=== PATIENT | male | born 1965 | race Two or more races ===

== ENCOUNTER 2021-02-28 13:38 | Emergency (ER) | payer BC ==
[~2021-02-28] VITALS: Ht 177.8 cm; Wt 82.7 kg
[2021-02-28 13:39] VITALS: BP 145/70
[2021-02-28] MEDS ORDERED: MILK500C PO (13:48)
[2021-02-28] MEDS ORDERED: FOLI1TAB11 PO (13:48)
[2021-02-28] MEDS ORDERED: FLOM0.4C39 PO (13:48)
[2021-02-28] MEDS ORDERED: HYZA50TA2 PO (13:48)
[2021-02-28] MEDS ORDERED: TRAZ1TAB10 PO (13:48)
[2021-02-28] MEDS ORDERED: KETOROLAC 30 MG/ML 1ML VIAL IM ONE (14:10)
[2021-02-28] MEDS ORDERED: CYCL5TAB PO (14:13)
[2021-02-28] MEDS ORDERED: ACET-683 PO (14:13)
[2021-04-17] MEDS ORDERED: EQL50TAB2 PO (14:41)
[2021-04-17] MEDS ORDERED: VITA100T28 PO (14:41)
== END 2021-02-28 14:50 | disposition home or self-care (01) ==
LOC: M ED 13:38
DX: M54.32 Sciatica, left side (principal); I10 Essential (primary) hypertension; N42.9 Disorder of prostate, unspecified; F10.11 Alcohol abuse, in remission; Z86.73 Personal history of transient ischemic attack (TIA), and cerebral infarction without residual deficits; Z87.891 Personal history of nicotine dependence; Z79.899 Other long term (current) drug therapy
CPT/HCPCS: 96372; 99283; J1885

== ENCOUNTER → 2021-04-01 | Outpatient (REF) | payer BC ==
[~2021-04-01] MED LIST: ACET-683 PO; CYCL5TAB PO; FLOM0.4C39 PO; FOLI1TAB11 PO; HYZA50TA2 PO; MILK500C PO; TRAZ1TAB10 PO
[2021-04-01 19:35] LABS: BACTERIA, URINE AUTO 1+ (NEGATIVE); RBC, URINE AUTO 4 /HPF (0-3); SQUAMOUS EPITHELIAL CELL UR AU 0 /HPF (0-6); WBC, URINE AUTO 1 /HPF (0-3)
== END ==
LOC: M LAB REF 16:08
PROVIDERS: ATTEND Internal Medicine
DX: R31.9 Hematuria, unspecified (principal)

== ENCOUNTER → 2021-04-22 | Outpatient (CLI) | payer BC ==
[~2021-04-22] MED LIST changes: +EQL50TAB2 PO; +LIDOCAINE 1% MDV 20ML VIAL As Ordered ONE; +VITA100T28 PO
[2021-04-22 10:59] VITALS: BP 111/55
== END ==
LOC: M IRPRO 08:18
PROVIDERS: ATTEND Internal Medicine
DX: K70.30 Alcoholic cirrhosis of liver without ascites (principal); E83.10 Disorder of iron metabolism, unspecified

== ENCOUNTER → 2021-09-24 | Outpatient (REF) | payer BC ==
[~2021-09-24] MED LIST changes: -LIDOCAINE 1% MDV 20ML VIAL As Ordered ONE
[2021-09-24 13:34] LABS: INR 1.36; PROTHROMBIN TIME 17.2 SECONDS (12.7-14.5)
== END ==
LOC: M LAB REF 12:49
PROVIDERS: ATTEND Internal Medicine
DX: K70.30 Alcoholic cirrhosis of liver without ascites (principal)

== ENCOUNTER → 2021-10-08 | Outpatient (CLI) | payer BC | LOC: M RAD 09:51 | PROVIDERS: ATTEND Internal Medicine | DX: K74.60 Unspecified cirrhosis of liver (principal) ==

== ENCOUNTER → 2021-11-30 | Outpatient (REF) ==
[~2021-11-30] MED LIST changes: -HYZA50TA2 PO; +LOSA-532 PO
[2021-12-02 06:08] LABS: RUBEOLA IgG ANTIBODY 63.8 AU/mL (Immune >16.4)
== END ==
LOC: M LAB 14:19
PROVIDERS: ATTEND Nurse Practitioner Adult Health
DX: Z01.89 Encounter for other specified special examinations (principal)

== ENCOUNTER → 2022-01-18 | Outpatient (CLI) | payer BC ==
[~2022-01-18] MED LIST changes: +ALBU8.5H INH; +CIPR500S PO; +CIPR750T2 PO; +COZA50TA PO; +PANT40TA29 PO; +PROP10TA56 PO; +[UNRECOGNIZED DRUG - CODE] PO
[2022-01-18 10:24] LABS: HEMATOCRIT 28.8 % (42.0-52.0); HEMOGLOBIN 9.2 g/dl (13.5-17.5)
== END ==
LOC: M LAB 09:31
PROVIDERS: ATTEND Family Medicine
DX: D50.9 Iron deficiency anemia, unspecified (principal)

== ENCOUNTER → 2022-01-20 | Outpatient (REF) | payer BC ==
[2022-01-21 11:52] LABS: INR 1.22; PROTHROMBIN TIME 15.7 SECONDS (12.5-14.5)
== END ==
LOC: M LAB REF 11:22
PROVIDERS: ATTEND Internal Medicine
DX: K70.30 Alcoholic cirrhosis of liver without ascites (principal)

== ENCOUNTER → 2022-02-16 | Outpatient (CLI) | payer BC ==
[~2022-02-16] MED LIST changes: +BUDE10.22; +FURO20TA2; +SPIR-10; +THIA100TA PO
[2022-02-16 19:03] LABS: BASO # 0.1 10^3/uL (0.0-0.2); BASO % 0.8 % (0.0-1.0); EOS # 0.3 10^3/uL (0.0-0.5); EOS % 4.7 % (0.0-3.0); HEMATOCRIT 36.5 % (42.0-52.0); HEMOGLOBIN 11.7 g/dl (13.5-17.5); LYMPH # 1.9 10^3/uL (1.5-5.0); LYMPH % 31.3 % (24.0-44.0); MEAN CORPUSCULAR HEMOGLOBIN 32.1 pg (27.0-33.0); MEAN CORPUSCULAR HGB CONC 32.1 g/dl (32.0-36.5); MEAN CORPUSCULAR VOLUME 100.3 fl (80.0-96.0); MONO # 0.6 10^3/uL (0.0-0.8); MONO % 9.9 % (2.0-8.0); NEUTROPHILS # 3.2 10^3/uL (1.5-8.5); NEUTROPHILS % 53.1 % (36.0-66.0); PLATELET COUNT, AUTOMATED 170 10^3/uL (150-450); RED BLOOD COUNT 3.64 10^6/uL (4.30-6.10)
[2022-02-16 19:23] LABS: ALBUMIN 3.2 G/DL (3.2-5.2); ALKALINE PHOSPHATASE 154 U/L (46-116); ALT/SGPT 60 U/L (7.0-40); AST/SGOT 87 U/L (<34); BILIRUBIN,TOTAL 1.7 MG/DL (0.3-1.2); BLOOD UREA NITROGEN 16 MG/DL (9-23); CALCIUM LEVEL 9.3 MG/DL (8.5-10.1); CARBON DIOXIDE LEVEL 26 MMOL/L (20-31); CHLORIDE LEVEL 105 MMOL/L (98-107); CREATININE FOR GFR 1.14 MG/DL (0.70-1.30); GLOMERULAR FILTRATION RATE > 60.0 (>56); GLUCOSE, FASTING 82 MG/DL (60-100); POTASSIUM SERUM 4.1 MMOL/L (3.5-5.1); SODIUM LEVEL 138 MMOL/L (136-145); TOTAL PROTEIN 8.8 G/DL (5.7-8.2)
[2022-02-16 19:24] LABS: THYROID STIMULATING HORMONE 1.015 uIU/ML (0.55-4.78)
[2022-02-16 19:25] LABS: FERRITIN 203.3 NG/ML (10.5-307.3); FREE T4 1.06 NG/DL (0.89-1.76)
[2022-02-16 19:42] LABS: HEPATITIS B SURFACE ANTIGEN NEGATIVE (NEGATIVE)
[2022-02-16 20:04] LABS: HEPATITIS B CORE ANTIBODY IGM NEGATIVE (NEGATIVE)
== END ==
LOC: M LAB 17:51
PROVIDERS: ATTEND Physician Assistant
DX: R53.1 Weakness (principal); I10 Essential (primary) hypertension

== ENCOUNTER 2022-02-17 11:50 | Emergency (ER) | payer BC ==
[~2022-02-17] VITALS: Ht 177.8 cm; Wt 78.6 kg
[~2022-02-17 11:50] MED LIST changes: -BUDE10.22; -FURO20TA2; -SPIR-10; -THIA100TA PO
[2022-02-17] MEDS ORDERED: SPIR-10 (12:30)
[2022-02-17] MEDS ORDERED: FURO20TA2 (12:30)
[2022-02-17] MEDS ORDERED: BUDE10.22 (12:30)
[2022-02-17] MEDS ORDERED: ISOVUE-370 76% 100ML VIAL As Ordered ONE (16:51)
[2022-02-17 17:50] LABS: BASO # 0.1 10^3/uL (0.0-0.2); EOS # 0.3 10^3/uL (0.0-0.5); EOS % 5.4 % (0.0-3.0); HEMATOCRIT 34.8 % (42.0-52.0); HEMOGLOBIN 11.5 g/dl (13.5-17.5); LYMPH # 1.6 10^3/uL (1.5-5.0); LYMPH % 26.6 % (24.0-44.0); MEAN CORPUSCULAR HEMOGLOBIN 32.4 pg (27.0-33.0); MONO # 0.7 10^3/uL (0.0-0.8); NEUTROPHILS # 3.3 10^3/uL (1.5-8.5); NEUTROPHILS % 54.7 % (36.0-66.0); PLATELET COUNT, AUTOMATED 144 10^3/uL (150-450); RED BLOOD COUNT 3.55 10^6/uL (4.30-6.10); WHITE BLOOD COUNT 6.1 10^3/uL (4.0-10.0)
[2022-02-17 18:01] LABS: INR 1.4; PROTHROMBIN TIME 17.4 SECONDS (12.5-14.5)
[2022-02-17 18:32] LABS: CK-MB VALUE MASS < 1.0 NG/ML (<3.6)
[2022-02-17 18:34] LABS: BLOOD UREA NITROGEN 16 MG/DL (9-23); CALCIUM LEVEL 8.8 MG/DL (8.5-10.1); CARBON DIOXIDE LEVEL 25 MMOL/L (20-31); CHLORIDE LEVEL 106 MMOL/L (98-107); CPK CREATINE PHOSPHOKINASE 205 U/L (46-171); CREATININE FOR GFR 1.26 MG/DL (0.70-1.30); GLOMERULAR FILTRATION RATE > 60.0 (>56); GLUCOSE, FASTING 78 MG/DL (60-100); MB/CK RELATIVE INDEX 0.48 (< OR =4); SODIUM LEVEL 138 MMOL/L (136-145)
[2022-02-17] MEDS ORDERED: ASPIRIN 325 MG TAB PO ONE (21:00)
[2022-02-17] MEDS ORDERED: THIAMINE 100 MG TAB PO ONE (21:00)
[2022-02-17] MEDS ORDERED: THIA100TA PO (21:09)
[2022-02-17 21:19] VITALS: BP 166/78
== END 2022-02-17 21:21 | disposition home or self-care (01) ==
LOC: M ED 11:50
DX: R47.9 Unspecified speech disturbances (principal); S22.41XA Multiple fractures of ribs, right side, initial encounter for closed fracture; I10 Essential (primary) hypertension; Z86.73 Personal history of transient ischemic attack (TIA), and cerebral infarction without residual deficits; K74.60 Unspecified cirrhosis of liver; F10.11 Alcohol abuse, in remission; Z87.891 Personal history of nicotine dependence; Z79.899 Other long term (current) drug therapy

== ENCOUNTER → 2022-02-22 | Outpatient (REF) | payer BC ==
[~2022-02-22] MED LIST changes: +BUDE10.22; +FURO20TA2; +SPIR-10; +THIA100TA PO
[2022-02-23 12:38] LABS: BACTERIA, URINE SMALL AMOUNT; SQUAMOUS EPITHELIAL CELL URINE SMALL AMOUNT /hpf (SMALL AMT)
[2022-02-23 12:39] LABS: AMORPHOUS SEDIMENT, URINE SMALL AMOUNT (NEGATIVE); HYALINE CAST, URINE 0-1 /lpf (0-1); MUCUS, URINE LARGE AMOUNT (NEGATIVE)
[2022-02-23 14:29] LABS: INR 1.3; PROTHROMBIN TIME 16.4 SECONDS (12.5-14.5)
== END ==
LOC: M LAB REF 11:46
PROVIDERS: ATTEND Internal Medicine
DX: R31.9 Hematuria, unspecified (principal); G93.40 Encephalopathy, unspecified; K70.30 Alcoholic cirrhosis of liver without ascites

== ENCOUNTER → 2022-03-09 | Outpatient (REF) | payer BC | LOC: M LAB REF 12:26 | PROVIDERS: ATTEND Internal Medicine | DX: K70.30 Alcoholic cirrhosis of liver without ascites (principal); G93.40 Encephalopathy, unspecified ==

== ENCOUNTER → 2022-03-26 | Outpatient (CLI) | payer BC | LOC: M WUC 08:53 | PROVIDERS: ATTEND Student in an Organized Health Care Education/Training Program | DX: R06.02 Shortness of breath (principal) ==

== ENCOUNTER → 2022-06-07 | Outpatient (REF) | payer BC ==
[2022-06-07 17:56] LABS: INR 1.17; PROTHROMBIN TIME 15.1 SECONDS (12.5-14.5)
== END ==
LOC: M LAB REF 16:09
PROVIDERS: ATTEND Internal Medicine
DX: G93.40 Encephalopathy, unspecified (principal); K70.31 Alcoholic cirrhosis of liver with ascites

== ENCOUNTER → 2022-06-10 | Outpatient (CLI) | payer BC | LOC: M RAD 08:01 | PROVIDERS: ATTEND Internal Medicine Gastroenterology | DX: K74.60 Unspecified cirrhosis of liver (principal); K80.10 Calculus of gallbladder with chronic cholecystitis without obstruction; R18.8 Other ascites; I85.01 Esophageal varices with bleeding; F10.10 Alcohol abuse, uncomplicated; C22.0 Liver cell carcinoma; E83.19 Other disorders of iron metabolism ==

== ENCOUNTER → 2022-09-08 | Outpatient (REF) | payer BC ==
[~2022-09-08] MED LIST changes: -COZA50TA PO; +LOSA-528 PO
[2022-09-08 18:36] LABS: INR 1.06
== END ==
LOC: M LAB REF 16:34
PROVIDERS: ATTEND Internal Medicine
DX: K70.31 Alcoholic cirrhosis of liver with ascites (principal)

== ENCOUNTER → 2023-03-10 | Outpatient (CLI) | payer BC | LOC: M RAD 07:58 | PROVIDERS: ATTEND Internal Medicine Gastroenterology | DX: K74.60 Unspecified cirrhosis of liver (principal); K80.20 Calculus of gallbladder without cholecystitis without obstruction; I85.01 Esophageal varices with bleeding; E83.19 Other disorders of iron metabolism; R18.8 Other ascites; Z12.11 Encounter for screening for malignant neoplasm of colon ==

== ENCOUNTER 2023-04-18 09:22 | Emergency (ER) | payer BC ==
[~2023-04-18] VITALS: Ht 177.8 cm; Wt 84.1 kg
[2023-04-18] MEDS: MORPHINE 4 MG/ML 1ML VIAL IV PRN (10:59)
[2023-04-18] MEDS: METOCLOPRAMIDE INJ 10MG/2ML VIAL IV ONE (10:59)
[2023-04-18] MEDS: NS 1,000 ML IV SCH (10:59)
[2023-04-18 11:22] LABS: BASO % 0.4 % (0.0-1.0); EOS % 0.4 % (0.0-3.0); HEMATOCRIT 43.1 % (42.0-52.0); HEMOGLOBIN 14.9 g/dl (13.5-17.5); LYMPH # 0.8 10^3/uL (1.5-5.0); LYMPH % 11.9 % (24.0-44.0); MEAN CORPUSCULAR HEMOGLOBIN 34.4 pg (27.0-33.0); MEAN CORPUSCULAR HGB CONC 34.6 g/dl (32.0-36.5); MEAN CORPUSCULAR VOLUME 99.5 fl (80.0-96.0); MONO # 0.4 10^3/uL (0.0-0.8); MONO % 5.4 % (2.0-8.0); NEUTROPHILS # 5.5 10^3/uL (1.5-8.5); NEUTROPHILS % 81.5 % (36.0-66.0); PLATELET COUNT, AUTOMATED 152 10^3/uL (150-450); RED BLOOD COUNT 4.33 10^6/uL (4.30-6.10); WHITE BLOOD COUNT 6.7 10^3/uL (4.0-10.0)
[2023-04-18 11:50] LABS: LIPASE 42 U/L (12-53)
[2023-04-18 11:51] LABS: AMYLASE 124 U/L (30-118)
[2023-04-18 11:52] LABS: ALBUMIN 3.7 G/DL (3.2-5.2); ALKALINE PHOSPHATASE 167 U/L (46-116); ALT/SGPT 179 U/L (7.0-40); AST/SGOT 227 U/L (<34); BILIRUBIN,DIRECT 0.6 MG/DL (<0.4); BILIRUBIN,TOTAL 1.4 MG/DL (0.3-1.2); BLOOD UREA NITROGEN 13 MG/DL (9-23); CALCIUM LEVEL 8.5 MG/DL (8.5-10.1); CARBON DIOXIDE LEVEL 27 MMOL/L (20-31); CHLORIDE LEVEL 103 MMOL/L (98-107); CREATININE FOR GFR 0.94 MG/DL (0.70-1.30); GLOMERULAR FILTRATION RATE > 60.0 (>56); GLUCOSE, FASTING 114 MG/DL (60-100); POTASSIUM SERUM 4.1 MMOL/L (3.5-5.1); SODIUM LEVEL 136 MMOL/L (136-145); TOTAL PROTEIN 8.1 G/DL (5.7-8.2)
[2023-04-18 12:26] LABS: RSV AMPLIFICATION NEGATIVE (NEGATIVE)
[2023-04-18] MEDS ORDERED: ISOVUE-370 76% 100ML VIAL As Ordered ONE (12:38)
[2023-04-18] MEDS ORDERED: SUCR1SS PO (15:02)
[2023-04-18] MEDS ORDERED: OMEP40CA4 PO (15:03)
[2023-04-18 15:42] VITALS: BP 141/66; TEMP 98.7; O2SAT 99
== END 2023-04-18 16:09 | disposition home or self-care (01) ==
LOC: M ED 09:22
DX: K29.70 Gastritis, unspecified, without bleeding (principal); K20.90 Esophagitis, unspecified without bleeding; K80.50 Calculus of bile duct without cholangitis or cholecystitis without obstruction; I10 Essential (primary) hypertension; J44.9 Chronic obstructive pulmonary disease, unspecified; Z87.891 Personal history of nicotine dependence; R00.1 Bradycardia, unspecified; Z79.51 Long term (current) use of inhaled steroids; Z79.899 Other long term (current) drug therapy
CPT/HCPCS: 74177; 76705; 80048; 80076; 81001; 82150; 83690; 83930; 85025; 87631; 93005; 96361; 96374; 96375; 99284; J2765; Q9967

== ENCOUNTER → 2023-09-15 | Outpatient (REF) | payer BC ==
[~2023-09-15] MED LIST changes: +OMEP40CA4 PO; +SUCR1SS PO
[2023-09-15 12:33] LABS: INR 1.13; PROTHROMBIN TIME 14.2 SECONDS (12.5-14.5)
== END ==
LOC: M LAB REF 12:00
PROVIDERS: ATTEND Internal Medicine
DX: K70.30 Alcoholic cirrhosis of liver without ascites (principal); Z79.899 Other long term (current) drug therapy

== ENCOUNTER → 2023-09-22 | Outpatient (CLI) | payer BC | LOC: M RAD 09:33 | PROVIDERS: ATTEND Internal Medicine Gastroenterology | DX: K74.60 Unspecified cirrhosis of liver (principal); I85.01 Esophageal varices with bleeding; C22.0 Liver cell carcinoma; E83.19 Other disorders of iron metabolism; R18.8 Other ascites ==

== ENCOUNTER → 2024-03-19 | Outpatient (REF) | payer BC ==
[~2024-03-19] MED LIST changes: -CYCL5TAB PO; +CYCL5TAB4 PO
[2024-03-19 12:53] LABS: INR 1.05
[2024-03-19 13:09] LABS: PERCENT SATURATION 46.8 % (19.7-50.0)
[2024-03-19 13:12] LABS: FERRITIN 346.2 NG/ML (10.5-307.3)
== END ==
LOC: M LAB REF 12:18
PROVIDERS: ATTEND Internal Medicine
DX: K70.30 Alcoholic cirrhosis of liver without ascites (principal)

== ENCOUNTER → 2024-03-30 | Outpatient (CLI) | payer BC ==
[~2024-03-30] MED LIST changes: +ISOVUE-370 76% 100ML VIAL As Ordered ONE
== END ==
LOC: M RAD 08:51
DX: K74.60 Unspecified cirrhosis of liver (principal); I85.01 Esophageal varices with bleeding; E83.19 Other disorders of iron metabolism; K80.20 Calculus of gallbladder without cholecystitis without obstruction; K42.9 Umbilical hernia without obstruction or gangrene
CPT/HCPCS: 74170; Q9967

== ENCOUNTER → 2024-10-11 | Outpatient (REF) | payer BC ==
[~2024-10-11] MED LIST changes: -EQL50TAB2 PO; -FLOM0.4C39 PO; -ISOVUE-370 76% 100ML VIAL As Ordered ONE; +TAMS-18 PO; +VITA1TAB82 PO
[2024-10-11 17:22] LABS: IRON (FE) 172.0 UG/DL (65-175)
[2024-10-11 17:23] LABS: PERCENT SATURATION 44.8 % (19.7-50.0)
[2024-10-11 17:38] LABS: INR 1.05
== END ==
LOC: M LAB REF 17:07
PROVIDERS: ATTEND Internal Medicine
DX: K70.30 Alcoholic cirrhosis of liver without ascites (principal); E83.119 Hemochromatosis, unspecified

== ENCOUNTER → 2024-10-19 | Outpatient (CLI) | payer BC | LOC: M RAD 07:52 | DX: K74.60 Unspecified cirrhosis of liver (principal); I85.01 Esophageal varices with bleeding; E83.19 Other disorders of iron metabolism; R18.8 Other ascites; C22.0 Liver cell carcinoma ==

== ENCOUNTER → 2024-10-25 | Outpatient (CLI) | payer BC ==
[~2024-10-25] VITALS: Ht 177.8 cm; Wt 84.9 kg
[2024-10-25 14:22] LABS: PLATELET COUNT, AUTOMATED 192 10^3/uL (150-450)
[2024-10-25 15:25] VITALS: BP 158/81; O2SAT 99
== END ==
LOC: M INFU 13:39
PROVIDERS: ATTEND Internal Medicine
DX: E83.119 Hemochromatosis, unspecified (principal)

== ENCOUNTER 2025-01-25 13:04 | Outpatient (CLI) | payer BC ==
[~2025-01-25] VITALS: Ht 177.8 cm; Wt 84.1 kg
[2025-01-25 13:30] VITALS: BP 156/72; O2SAT 97
[2025-01-25 14:07] LABS: PLATELET COUNT, AUTOMATED 185 10^3/uL (150-450)
[2025-01-25 15:15] VITALS: BP 155/88; O2SAT 97
== END 2025-01-25 15:15 | disposition home or self-care (01) ==
LOC: M INFU 13:04
PROVIDERS: ATTEND Internal Medicine
DX: E83.119 Hemochromatosis, unspecified (principal)

== ENCOUNTER 2025-02-18 16:20 | Outpatient (CLI) | payer BC ==
[~2025-02-18] VITALS: Ht 177.8 cm; Wt 84.1 kg
[2025-02-18 16:20] VITALS: BP 172/85; O2SAT 97
[2025-02-18 16:59] VITALS: BP 147/87; O2SAT 98
== END 2025-02-18 17:00 ==
LOC: M INFU 16:20
PROVIDERS: ATTEND Internal Medicine
DX: E83.119 Hemochromatosis, unspecified (principal)

== ENCOUNTER 2025-03-04 16:05 | Outpatient (CLI) | payer BC ==
[~2025-03-04] VITALS: Ht 177.8 cm; Wt 84.0 kg
[2025-03-04 16:05] VITALS: BP 156/77; O2SAT 99
[2025-03-04 16:40] VITALS: BP 137/76; O2SAT 98
== END 2025-03-04 16:40 ==
LOC: M INFU 16:05
PROVIDERS: ATTEND Internal Medicine
DX: E83.119 Hemochromatosis, unspecified (principal)